=== PATIENT | female | born 1985 | race African-American/Black ===

== ENCOUNTER 2016-07-04 23:09 | Emergency (ER) ==
--- NOTE | 2016-07-05 00:52 | PROVIDER DOCUMENTATION ---
HPI-Abdominal Pain/GI Problem - General Chief Complaint: Abdominal Pain Stated Complaint: ABD PAIN,HEADACHE Time Seen by Provider: 07/05/16 00:33 Source: patient Allergies/Adverse Reactions: Patient Allergies Allergy/AdvReac Type Severity Reaction Status Date / Time No Known Allergies Allergy Verified 07/02/16 16:02 - History of Present Illness-ABD Nature of Presenting Problems: 31 y/o BF c/o constipation, FELTON, abd. pain, back pain x 3 days. Pt states constipated since 27 June 2016. Reports taking tylenol for fever, without relief. States low back pain. Denies any other sxs. Review of Systems - Adult - REVIEW OF SYSTEMS - ADULT Constitutional: reports: no symptoms reported. denies: chills, fever Eyes: reports: no symptoms reported. denies: blurred vision, double vision Ears, Nose, Mouth & Throat: reports: no symptoms reported. denies: ear pain, nose pain Cardiovascular: reports: no symptoms reported. denies: chest pain, palpitations Respiratory: reports: no symptoms reported. denies: dyspnea on exertion, shortness of breath Gastrointestinal: reports: see HPI, abdominal pain, constipation. denies: diarrhea, nausea, vomiting Genitourinary: reports: no symptoms reported. denies: dysuria, frequency Musculoskeletal: reports: no symptoms reported. denies: joint pain, joint swelling Integumentary: reports: no symptoms reported. denies: nail changes, rash Neurological: reports: see HPI, headache/migraines. denies: numbness, paresthesia Psychiatric: reports: no symptoms reported Endocrine: reports: no symptoms reported. denies: cold intolerance, heat intolerance Hematologic/Lymphatic: reports: no symptoms reported. denies: easy bruising, prolonged bleeding Allergic/Immunologic: reports: no symptoms reported All Other Systems: Reviewed and Negative Past History - Adult - PAST MEDICAL HISTORY-ADULT Review of Records: reports: Nursing Assessment Review, Medications Reviewed Major Childhood Illnesses: reports: denies history Cardiovascular: reports: HTN Respiratory: reports: denies history Gastrointestinal: reports: GERD, ulcer Obstetrical/Gynecological: reports: denies history Genitourinary: reports: denies history Musculoskeletal: reports: chronic pain, neck/back injury Neurological: reports: headaches/migraines Psychiatric: reports: anxiety Endocrine/Immune: reports: denies history Other Conditions: reports: denies history - PRIOR SURGERIES/PROCEDURES Surgical/Procedure History: reports: cholecystectomy, other (gallbader) - PRIOR HOSPITALIZATIONS Prior Hospitalizations: reports: none - IMMUNIZATION STATUS Childhood Immunizations: See Nurse Assessment Flu Vaccine: See Nurse Assessment - FAMILY HISTORY Family History: reviewed, not pertinent Physical Exam-General - PHYSICAL EXAM-ADULT Initial Vital Signs Reviewed: Yes - CONSTITUTIONAL General Appearance: alert, mild distress - EYES Eyes: PERRL/EOMI, pink conjunctivae - HEAD, EARS, NOSE, MOUTH & THROAT HENMT: normocephalic/atraumatic, moist mucous membranes, pharynx normal - NECK Neck: supple, normal inspection - RESPIRATORY Respiratory: lungs clear, normal breath sounds. negative: crackles, rales, rhonchi, stridor, wheezing - CARDIOVASCULAR Cardiovascular: regular rate, rhythm. negative: bradycardia, tachycardia - GASTROINTESTINAL (ABDOMEN) Abdominal Exam: normal bowel sounds, non tender, soft. negative: distended, guarding, rigid, rebound - MUSCULOSKELETAL Back Exam: no CVA tenderness Extremity: normal gait - SKIN Integumentary: normal color, normal turgor, warm/dry - NEUROLOGIC Neurologic: negative: aphasia - PSYCHIATRIC Psych/Mental Status: normal mood/affect, normal thought content, normal thought process, oriented x 3 Progress - PLAN OF CARE/RESULTS Progress/Plan/Lab Results: Laboratory Tests 07/05/16 07/05/16 07/05/16 00:45 01:10 01:10 WBC 7.22 RBC 4.23 Hgb 12.8 Hct 36.9 L MCV 87.2 MCH 30.3 MCHC 34.7 RDW Std Deviation 12.9 Plt Count 199 MPV 11.8 H Immature Gran % (Auto) 0.1 Neut % (Auto) 55.6 Lymph % (Auto) 29.8 [place] % (Auto) 12.6 H Eos % (Auto) 1.5 Baso % (Auto) 0.4 Immature Gran # (Auto) 0.01 Neut # (Auto) 4.01 Lymph # (Auto) 2.15 [place] # (Auto) 0.91 H Eos # (Auto) 0.11 Baso # (Auto) 0.03 Sodium 130 L Potassium 4.2 Chloride 98 Carbon Dioxide 24 L Anion Gap 8 BUN 10 Creatinine 0.4 L Estimated GFR/1.73 m2 > 60 BUN/Creatinine Ratio 25 Glucose 91 Calculated Osmolality 259 Calcium 9.3 Total Bilirubin < 0.15 L AST 12 ALT 8 L Alkaline Phosphatase 55 Total Protein 7.1 Albumin 3.8 Globulin 3.0 Albumin/Globulin Ratio 1.0 Amylase 136 Lipase 27 Urine Source CLEAN CATCH Urine Color YELLOW Urine Clarity CLEAR Urine pH 7.0 Ur Specific [place] 1.005 Urine Protein NEGATIVE Urine Ketones NEGATIVE Urine Blood NEGATIVE Urine Nitrite NEGATIVE Urine Bilirubin NEGATIVE Urine Urobilinogen NORMAL Urine Microscopic RBC Not Reportable Urine WBC NEGATIVE Urine Microscopic WBC <10 Ur Epithelial Cells <10 Urine Bacteria 1+ Urine Glucose NEGATIVE Orders Category Date Time Status NPO Diet 07/05/16 00:45 Completed AMYLASE [CHEM] Stat Lab 07/05/16 01:10 Completed CBC WITH ELECTRONIC DIFF [HEME] Stat Lab 07/05/16 01:10 Completed COMPREHENSIVE METABOLIC PANEL [CHEM] Stat Lab 07/05/16 01:10 Completed LIPASE [CHEM] Stat Lab 07/05/16 01:[address] W/POSS RFLX CULT [URINALYSIS] Stat Lab 07/05/16 00:45 Completed Acetaminophen [Tylenol] Med 07/05/16 02:13 Discontinued 1,000 mg PO NOW ONE Vital Signs Temp Pulse Resp BP Pulse Ox 07/05/16 02:29 82 18 105/69 98 07/04/16 23:28 98.5 F 92 H 18 113/77 100 No Known Allergies Allergy (Verified 07/02/16 16:02) Docusate Sodium [Colace] 100 mg PO BID PRN PRN #20 capsule 07/05/16 Polyethylene Glycol 3350 [Miralax] 17 gm PO DAILY #30 powd.pack 07/05/16 Laboratory 07/05/16 07/05/16 07/05/16 01:10 01:10 00:45 WBC 7.22 RBC 4.23 Hgb 12.8 Hct 36.9 L MCV 87.2 MCH 30.3 MCHC 34.7 RDW Std Deviation 12.9 Plt Count 199 MPV 11.8 H Immature Gran % (Auto) 0.1 Neut % (Auto) 55.6 Lymph % (Auto) 29.8 [place] % (Auto) 12.6 H Eos % (Auto) 1.5 Baso % (Auto) 0.4 Immature Gran # (Auto) 0.01 Neut # (Auto) 4.01 Lymph # (Auto) 2.15 [place] # (Auto) 0.91 H Eos # (Auto) 0.11 Baso # (Auto) 0.03 Sodium 130 L Potassium 4.2 Chloride 98 Carbon Dioxide 24 L Anion Gap 8 BUN 10 Creatinine 0.4 L Estimated GFR/1.73 m2 > 60 BUN/Creatinine Ratio 25 Glucose 91 Calculated Osmolality 259 Calcium 9.3 Total Bilirubin < 0.15 L AST 12 ALT 8 L Alkaline Phosphatase 55 Total Protein 7.1 Albumin 3.8 Globulin 3.0 Albumin/Globulin Ratio 1.0 Amylase 136 Lipase 27 Urine Source CLEAN CATCH Urine Color YELLOW Urine Clarity CLEAR Urine pH 7.0 Ur Specific [place] 1.005 Urine Protein NEGATIVE Urine Ketones NEGATIVE Urine Blood NEGATIVE Urine Nitrite NEGATIVE Urine Bilirubin NEGATIVE Urine Urobilinogen NORMAL Urine Microscopic RBC Not Reportable Urine WBC NEGATIVE Urine Microscopic WBC <10 Ur Epithelial Cells <10 Urine Bacteria 1+ Urine Glucose NEGATIVE Discussed results and f/u with pt. Departure - Departure Time of Disposition Order: 02:13 DIAGNOSIS: Constipation Qualifiers: Constipation type: unspecified constipation type Qualified Code(s): K59.00 - Constipation, unspecified Headache Qualifiers: Headache type: other vascular headache Qualified Code(s): G44.1 - Vascular headache, not elsewhere classified Disposition: HOME 01 Certified Medical Emergency: Emergent Condition: Stable Additional Instructions: Drink plenty of fluids. Follow up with OB for recheck in 3-5 days. ED Follow Up Instructions: You have been treated by a care provider in the Emergency Department. These instructions are being provided to you so you can have an understanding of how to care for yourself upon discharge. Upon discharge from the Emergency Department, you are responsible for making arrangements for follow-up care by a physician of your choice. Take all prescribed medications as directed. Return to the Emergency Department immediately for any new or worsening symptoms. You may call the Physician Referral phone number at [phone] to obtain a list of Physicians who are taking new patients. Prescriptions: Docusate Sodium [Colace] 100 mg PO BID PRN PRN #20 capsule PRN Reason: Constipation Polyethylene Glycol 3350 [Miralax] 17 gm PO DAILY #30 powd.pack Referrals: None,PCP [Primary Care Provider] - Alessio Sosa MD [STAFF PHYSICIAN] - Forms: Return to School/Parent Work Instructions: Docusate Sodium; Senna tablets, Migraine Headache, [id number], Polyethylene Glycol powder Attestation - Physician/ Mid-level Attestation Patient care was provided by Mid-level provider (HAY FARMER/PA):: Yes Mid-level provider:: Marjorie Garcia Mid-level documentation review:: The Mid-level provider documentation, treatment plan and medical decision making was reviewed by the physician who agrees with all treatment and medical decision making by the MLP.
[2016-07-05 01:15] LABS: MANUAL DIFF NEEDED? NO
[2016-07-05 01:23] LABS: BASO% 0.4 % (0.0-0.8); EOS# 0.11 X1000 (0.0-0.7); EOS% 1.5 % (0.0-10.0); HEMATOCRIT 36.9 % (37.0-47.0); HEMOGLOBIN 12.8 g/dL (12.0-16.0); IMM GRAN# 0.01 X1000 (0.0-0.04); IMM GRAN% 0.1 % (0.0-0.5); LYMPH# 2.15 X1000 (1.2-3.4); LYMPH% 29.8 % (20.5-51.1); MCH 30.3 PG (27-31); MCHC 34.7 g/dL (33-37); MCV 87.2 FL (81-99); MONO# 0.91 X1000 (0.11-0.59); MONO% 12.6 % (1.7-9.3); MPV 11.8 FL (7.4-10.4); NEUT% 55.6 % (42.2-75.2); PLT 199 X1000 (130-400); RBC 4.23 XMIL (4.2-5.4)
[2016-07-05 01:49] LABS: URINE CULTURE PL NEEDED? NO; URINE SOURCE CLEAN CATCH
[2016-07-05 02:08] LABS: BILIRUBIN URINE NEGATIVE (NEGATIVE); BLOOD URINE NEGATIVE (NEGATIVE); CLARITY CLEAR (CLEAR); COLOR YELLOW; GLUCOSE URINE NEGATIVE (NEGATIVE); LEUKOCYTES URINE NEGATIVE (NEGATIVE); NITRITE URINE NEGATIVE (NEGATIVE); PROTEIN URINE NEGATIVE (NEGATIVE); SP GRAVITY URINE 1.005; UROBILINOGEN URINE NORMAL
[2016-07-05] MEDS ORDERED: TYLENOL PO ONE (02:13)
[2016-07-05 02:21] LABS: URINE WBC <10 /HPF (<10)
[2016-07-05 02:22] LABS: URINE EPITHELIAL CELLS <10 /HPF (<10)
[2016-07-05 02:33] VITALS: BP 105/69
[2016-07-05 02:50] LABS: AGAP 8; ALBUMIN 3.8 g/dL (3.5-5.0); ALKALINE PHOSPHATASE 55 U/L (32-104); AMYLASE 136 U/L (20-200); BUN 10 mg/dL (8-22); CALCIUM 9.3 mg/dL (8.8-10.2); CHLORIDE 98 mmol/L (98-107); COSMO 259; GOT 12 U/L (10-30); GPT 8 U/L (10-36); LIPASE 27 U/L (13-60); SODIUM 130 mmol/L (136-145); TCO2 24 mmol/L (25-35); TOTAL BILIRUBIN < 0.15 mg/dL (0.20-1.00); TOTAL PROTEIN 7.1 g/dL (6.3-8.3)
[2016-07-05 03:22] LABS: POTASSIUM 4.2 mmol/L (3.5-5.1)
== END 2016-07-05 02:38 | disposition home or self-care (01) ==
LOC: P.ED 23:09
DX: K59.00 Constipation, unspecified (principal); G44.1 Vascular headache, not elsewhere classified; R10.9 Unspecified abdominal pain; M54.9 Dorsalgia, unspecified; I10 Essential (primary) hypertension; G89.29 Other chronic pain; R51 Headache
CPT/HCPCS: 36415; 80053; 81001; 82150; 83690; 85025; 99283

== ENCOUNTER 2016-09-10 14:38 | Emergency (ER) ==
[2016-09-10 16:32] VITALS: BP 104/066
--- NOTE | 2016-09-10 18:14 | PROVIDER DOCUMENTATION ---
HPI-General Adult - General Chief Complaint: Cold Symptoms Stated Complaint: 18+5DAYS WEEKS PREG (CONGESTED) Time Seen by Provider: 09/10/16 18:10 Source: patient Allergies/Adverse Reactions: Patient Allergies Allergy/AdvReac Type Severity Reaction Status Date / Time No Known Allergies Allergy Verified 09/10/16 15:01 Home Medications: Home Medication List Medication Instructions Recorded Confirmed Last Taken Type Azithromycin [Zithromax Z-Jason] 250 mg PO DIRECTED #1 pkg 09/10/16 Unknown Rx Pnv Cmb#95/Ferrous Fumarate/FA 1 mg PO DAILY 09/10/16 09/10/16 Unknown History [ Tablet] - History of Present Illness -Gen Adult Nature of Presenting Problems: 31 yof cold symptoms for a week, BP up and down, Neck pain. Headache with tylenol and no relief. Pt hasn't felt baby move in past 3 days. Location of Pain/Injury: reports: head, face Pain Radiation: reports: no radiation Quality of Pain: reports: aching Onset/Duration: reports: 3 days ago Timing: reports: still present, getting worse Context/Activities at Onset: reports: none Modifying Factors: improves with: nothing Associated Symptoms: reports: dizziness, sinus congestion/drainage Similar Symptoms Previously?: No Recently seen or treated by another doctor?: No Review of Systems - Adult - REVIEW OF SYSTEMS - ADULT Constitutional: reports: see HPI, chills. denies: no symptoms reported, fever, fatique, night sweats, weight gain, weight loss, other Eyes: reports: no symptoms reported. denies: see HPI, discharge, dry eyes, decreased vision, blurred vision, double vision, eye pain, redness, other Ears, Nose, Mouth & Throat: reports: see HPI, sinus problem. denies: no symptoms reported, ear discharge, ear pain, hearing loss, tinnitus, epistaxis, nose pain, loose teeth, mouth/dental pain, mouth swelling, hoarseness, throat pain, throat swelling, other Cardiovascular: reports: no symptoms reported. denies: see HPI, chest pain, edema, heart murmur, irregular heart rate, orthopnea, palpitations, poor circulation, PND, syncope, other Respiratory: reports: no symptoms reported. denies: see HPI, chronic cough, cough, dyspnea on exertion, excessive sputum production, hemoptysis, pleurisy, shortness of breath, wheezing, other Gastrointestinal: reports: no symptoms reported. denies: see HPI, abdominal pain, hematemesis, constipation, diarrhea, difficulty swallowing, frequent heartburn, nausea, poor appetite, rectal bleeding, vomiting, other Genitourinary: reports: no symptoms reported. denies: see HPI, dysuria, discharge, frequency, flank pain, frequent UTI's, hematuria, hesitency, incontinence, urinary retention, urgency, other Musculoskeletal: reports: no symptoms reported. denies: see HPI, bone pain, back pain, frequent leg cramps, joint pain, joint swelling, muscle aches, muscle weakness, neck pain, other Integumentary: reports: no symptoms reported. denies: see HPI, hives, hair loss , itching, mole changes, nail changes, rash, skin sores/ulcer, skin thickening, other Neurological: reports: no symptoms reported. denies: see HPI, ataxia, dizziness /vertigo, headache/migraines, loss of balance, numbness, paresthesia, seizure, slurred speech, syncope, tremors, other All Other Systems: Reviewed and Negative Past History - Adult - PAST MEDICAL HISTORY-ADULT Review of Records: reports: Old Records Reviewed, Nursing Assessment Review, Medications Reviewed, Social history reviewed & non-contributory. Major Childhood Illnesses: reports: denies history Cardiovascular: reports: HTN Respiratory: reports: denies history Gastrointestinal: reports: GERD, ulcer Obstetrical/Gynecological: reports: denies history Genitourinary: reports: denies history Musculoskeletal: reports: chronic pain, neck/back injury Neurological: reports: headaches/migraines Psychiatric: reports: anxiety Endocrine/Immune: reports: denies history Other Conditions: reports: denies history - PRIOR SURGERIES/PROCEDURES Surgical/Procedure History: reports: cholecystectomy, other (gallbader) - PRIOR HOSPITALIZATIONS Prior Hospitalizations: reports: none - IMMUNIZATION STATUS Childhood Immunizations: See Nurse Assessment Flu Vaccine: See Nurse Assessment - FAMILY HISTORY Family History: reviewed, not pertinent Physical Exam-General - PHYSICAL EXAM-ADULT Initial Vital Signs Reviewed: Yes - CONSTITUTIONAL General Appearance: appears well, alert, no apparent distress. negative: mild distress, moderate distress, severe distress, cachetic, obese, thin, anxious, lethargic, slow to respond, obtunded, combative, other - EYES Eyes: PERRL/EOMI, pink conjunctivae. negative: fundi clear, no AV nicking, anisocoria, conjuctival exudate, EOM palsy, meningismus, pale conjunctivae, photophobia, sclera injected, scleral icterus, subconjunctival hemorrhage, sunken eyes, other - HEAD, EARS, NOSE, MOUTH & THROAT HENMT: normocephalic/atraumatic, moist mucous membranes, normal ENT inspection, TMs normal, pharynx normal, frontal tenderness. negative: angioedema, dental decay, hearing deficit, pharyngeal erythema, tonsillar exudate, TM abnormal, TM obscurred by cerumen, maxillary tenderness, other - NECK Neck: non-tender, full range of motion, supple, normal inspection. negative: Brudzinski's sign, carotid bruit, C-spine tenderness, limited range of motion, lymphadenopathy, meningismus, trachial deviation, tender lateral, tender midline , thyromegaly, other - RESPIRATORY Respiratory: chest non-tender, lungs clear, normal breath sounds, no pleuratic chest pain, no respiratory distress, no accessory muscle use. negative: respiratory distress, decreased breath sounds, accessory muscle use, crackles, rales, rhonchi, stridor, wheezing, dull on percussion, prolonged expiration, pain on inspiration, plerual rub, retractions, splinting, decreased rate, increased rate, crepitus, other - CARDIOVASCULAR Cardiovascular: normal peripheral pulses, regular rate, rhythm, no edema, no gallop, no JVD, no murmur. negative: JVD, bradycardia, tachycardia, diastolic murmur, systolic murmur, gallop/S3, gallop/S4, extra beats, friction rub, irregularly irregular, PMI displaced laterally, other - CHEST (BREASTS) Chest/Breast: deferred. negative: normal breast inspection, no masses/lumps, no tenderness, nipple discharge, tenderness, mass/lump noted, other - GASTROINTESTINAL (ABDOMEN) Abdominal Exam: normal bowel sounds, non tender, soft, no organomegaly, no pulsatile mass. negative: abdominal bruit, abnormal bowel sounds, distended, guarding, rigid, rebound, tenderness, hernia, mass, hepatomegaly, spleenomegaly , McBurney's point tenderness, Pineda's sign, obturator sign, prominent aortic pulsations, psoas, Rovsing's sign, other - GENITOURINARY Female Genitalia/Pelvic Exam: deferred. negative: external exam normal, speculum exam normal, bimanual exam normal, no cerv. motion tender, no masses, active bleeding, blood, cervicitis, discharge, herpes-like ulcerations, lesions , mass, tender w/ cervical motion, tender adnexa, tender uterus, ulcers, other Rectal Exam: deferred Hemoccult Exam: deferred - LYMPHATIC Lymphatic: no adenopathy. negative: axilla node tender, cervical node tenderness, inguinal node tender, enlargement, striations, streaking, other - MUSCULOSKELETAL Back Exam: normal inspection, no CVA tenderness, no vertebral tenderness. negative: CVA tenderness, decreased range of motion, ecchymosis, kyphosis, lordosis, muscle spasm, scoliosis, swelling, vertebral tenderness, other Extremity: normal range of motion, non-tender, normal gait, normal inspection, no pedal edema, no calf tenderness, normal capillary refill. negative: pelvis stable, abnormal NV exam, calf tenderness, deformity, erythema, inflammation, joint effusion, pulse deficit, pedal edema, slow capillary refill, swelling, tenderness, other - SKIN Integumentary: normal color, normal turgor, warm/dry - NEUROLOGIC Neurologic: grossly normal - PSYCHIATRIC Psych/Mental Status: oriented x 3 Progress - PLAN OF CARE/RESULTS Progress/Plan/Lab Results: Laboratory Tests 09/10/16 09/10/16 15:02 15:02 Influenza A (Rapid) NEGATIVE Influenza B (Rapid) NEGATIVE Group A Strep Rapid NEGATIVE Orders Category Date Time Status Heart Tones NOW Care 09/10/16 18:[address] Stat Lab 09/10/16 15:02 Completed Flu [INFLUENZA SCREEN PL] Stat Lab 09/10/16 15:02 Completed Vital Signs Temp Pulse Resp BP Pulse Ox 09/10/16 16:29 98.8 F 82 17 104/066 100 09/10/16 14:58 98.3 F 88 16 112/65 100 No Known Allergies Allergy (Verified 09/10/16 15:01) Azithromycin [Zithromax Z-Jason] 250 mg PO DIRECTED #1 pkg 09/10/16 Pnv Cmb#95/Ferrous Fumarate/FA [ Tablet] 1 mg PO DAILY 09/10/16 Laboratory 09/10/16 09/10/16 15:02 15:02 Influenza A (Rapid) NEGATIVE Influenza B (Rapid) NEGATIVE Group A Strep Rapid NEGATIVE Departure - Departure Time of Disposition Order: 18:15 DIAGNOSIS: Sinusitis Qualifiers: Sinusitis location: frontal Chronicity: acute Recurrence: not specified as recurrent Qualified Code(s): J01.10 - Acute frontal sinusitis, unspecified DIAGNOSIS: (Ruled Out): Sinusitis chronic, frontal Disposition: HOME 01 Certified Medical Emergency: Emergent Condition: Stable Additional Instructions: ED Follow Up Instructions: You have been treated by a care provider in the Emergency Department. These instructions are being provided to you so you can have an understanding of how to care for yourself upon discharge. Upon discharge from the Emergency Department, you are responsible for making arrangements for follow-up care by a physician of your choice. Take all prescribed medications as directed. Return to the Emergency Department immediately for any new or worsening symptoms. You may call the Physician Referral phone number at [phone] to obtain a list of Physicians who are taking new patients. Prescriptions: Azithromycin [Zithromax Z-Jason] 250 mg PO DIRECTED #1 pkg Referrals: Justine Laurent MD [STAFF PHYSICIAN] - None,PCP [Primary Care Provider] - Forms: Return to School/Parent Work Instructions: Sinusitis, [id number] Attestation - Physician/ NIDIA Attestation Patient care was provided by Advanced Practice Provider:: Yes Advanced Practice Provider:: Faustino Hyde Advanced Practice Provider documentation review:: The Mid-level provider documentation, treatment plan and medical decision making was reviewed by the physician who agrees with all treatment and medical decision making by the [facility]. Physician Attestation - Physician Attestation I, the provider, attest to the following statement:: Faustino Hyde Physician documentation Attestation:: This documentation recorded by the scribe accurately reflects the service I personally performed and the decisions made by me.
== END 2016-09-10 18:36 | disposition home or self-care (01) ==
LOC: P.ED 14:38
DX: O26.892 Other specified pregnancy related conditions, second trimester (principal); J01.10 Acute frontal sinusitis, unspecified; R51 Headache; M54.2 Cervicalgia; R42 Dizziness and giddiness; R09.81 Nasal congestion; R68.83 Chills (without fever); G89.29 Other chronic pain; Z3A.18 18 weeks gestation of pregnancy
CPT/HCPCS: 87081; 87430; 87804; 99283

== ENCOUNTER 2016-12-25 00:21 | Inpatient (IN) ==
[2016-12-25] MEDS ORDERED: MORPHINE IV ONE (01:26)
[2016-12-25] MEDS ORDERED: SODIUM CHLORIDE 0.9% INJ ONE ×2 (01:26→03:15)
[2016-12-25] MEDS ORDERED: PHENERGAN IV ONE (01:26)
[2016-12-25] MEDS ORDERED: NS 1,000 ML IV ONE ×2 (01:26→03:13)
[2016-12-25] MEDS ORDERED: ZOFRAN IV ONE (02:28)
--- NOTE | 2016-12-25 03:13 | PROVIDER DOCUMENTATION ---
This chart was entered by Rosario Johansen Scribe, acting as scribe for Jamie Wahl MD. HPI-Abdominal Pain/GI Problem - General Chief Complaint: N/V/D Stated Complaint: V/N/D Time Seen by Provider: 12/25/16 00:50 Source: patient Allergies/Adverse Reactions: Patient Allergies Allergy/AdvReac Type Severity Reaction Status Date / Time No Known Allergies Allergy Verified 12/23/16 19:38 Home Medications: Home Medication List Medication Instructions Recorded Confirmed Last Taken Type Pnv Cmb#95/Ferrous Fumarate/FA 1 mg PO DAILY 09/10/16 12/25/16 12/22/16 History [ Tablet] Metronidazole [Metronidazole] 500 mg PO TID 12/25/16 12/25/16 Unknown History Ondansetron HCl 4 mg PO PRN PRN 12/25/16 12/25/16 Unknown History - History of Present Illness-ABD Nature of Presenting Problems: Pt is a 31 year old female who came to the ED with a cc of N/V/D and being . pt reports she was recently diagnosed with cdiff and has been on antibiotics which has not helped. Pain Radiation: reports: no radiation Quality of Pain: reports: cramping Severity in ED: reports: mild Onset/Duration: reports: 5 days ago Timing: reports: still present Associated Symptoms: reports: diarrhea, nausea, vomiting. denies: headaches, heartburn Last BM: unsure Dark Stools Present?: reports: none noticed Rectal Bleeding: reports: none Rectal Pain: reports: none Bruising or Bleeding Gums?: No Similar Symptoms Previously?: Yes Recently seen or treated by another doctor?: Yes Review of Systems - Adult - REVIEW OF SYSTEMS - ADULT Constitutional: denies: chills, fever Eyes: reports: no symptoms reported Ears, Nose, Mouth & Throat: denies: loose teeth, throat swelling Cardiovascular: reports: no symptoms reported Respiratory: reports: no symptoms reported Gastrointestinal: reports: abdominal pain, diarrhea, nausea, vomiting. denies: hematemesis, difficulty swallowing, frequent heartburn Genitourinary: reports: no symptoms reported Musculoskeletal: denies: frequent leg cramps, joint swelling Integumentary: reports: no symptoms reported Neurological: reports: no symptoms reported Psychiatric: reports: no symptoms reported Endocrine: reports: no symptoms reported Hematologic/Lymphatic: reports: no symptoms reported Allergic/Immunologic: reports: no symptoms reported All Other Systems: Reviewed and Negative Past History - Adult - PAST MEDICAL HISTORY-ADULT Review of Records: reports: Nursing Assessment Review Major Childhood Illnesses: reports: denies history Cardiovascular: reports: HTN Respiratory: reports: denies history Gastrointestinal: reports: GERD, ulcer Obstetrical/Gynecological: reports: denies history Genitourinary: reports: denies history Musculoskeletal: reports: chronic pain, neck/back injury Neurological: reports: headaches/migraines Psychiatric: reports: anxiety Endocrine/Immune: reports: denies history Other Conditions: reports: denies history - PRIOR SURGERIES/PROCEDURES Surgical/Procedure History: reports: cholecystectomy, other (gallbader) - PRIOR HOSPITALIZATIONS Prior Hospitalizations: reports: none - IMMUNIZATION STATUS Childhood Immunizations: See Nurse Assessment Flu Vaccine: See Nurse Assessment - FAMILY HISTORY Family History: reviewed, not pertinent Physical Exam-General - PHYSICAL EXAM-ADULT Initial Vital Signs Reviewed: Yes - CONSTITUTIONAL General Appearance: alert, mild distress - EYES Eyes: PERRL/EOMI, pink conjunctivae - HEAD, EARS, NOSE, MOUTH & THROAT HENMT: normocephalic/atraumatic, moist mucous membranes - NECK Neck: non-tender, full range of motion - RESPIRATORY Respiratory: chest non-tender, lungs clear - CARDIOVASCULAR Cardiovascular: normal peripheral pulses, regular rate, rhythm - GASTROINTESTINAL (ABDOMEN) Abdominal Exam: normal bowel sounds, soft - MUSCULOSKELETAL Back Exam: CVA tenderness Extremity: normal range of motion, non-tender - SKIN Integumentary: normal color, normal turgor - NEUROLOGIC Neurologic: grossly normal - PSYCHIATRIC Psych/Mental Status: normal mood/affect, normal thought content, normal thought process, oriented x 3 Progress - PLAN OF CARE/RESULTS Progress/Plan/Lab Results: Vital Signs - 8 hr 12/25/16 00:32 Temperature 98.2 F Pulse Rate 110 H Respiratory Rate 18 Blood Pressure 117/73 O2 Sat by Pulse Oximetry 100 - REASSESSMENT Reassessment #1 Time Reassessed: 03:11 (pt still unable to keep water down despite phenergan 25mg and zofran 8 mg ) Status: unchanged - CONSULTS/PCP/HOSPITALIST Notification #1 *Consult/PCP/Hospitalist*: Dr Suggs Time Discussed: 03:12 Consult Disposition: Admit Departure - Departure Date of Disposition Decision: 12/25/16 Time of Disposition Decision: 03:12 DIAGNOSIS: 33 weeks gestation of Vomiting Qualifiers: Vomiting type: unspecified Vomiting Intractability: intractable Nausea presence : with nausea Qualified Code(s): R11.2 - Nausea with vomiting, unspecified Disposition: ADMITTED INPATIENT 09 Certified Medical Emergency: Emergent Condition: Good Referrals and Follow-Ups: Lobito Suggs MD [Primary Care Provider] - - Critical Care Note This patient required my direct & personal management of CC.: No This chart was documented by the indicated scribe, (Rosario Johansen Scribe) and accurately reflects the services I performed and decisions made by me, Jamie Miramontes MD, as attested by the provider's signature.
[2016-12-25] MEDS ORDERED: ZOFRAN IV PRN (03:14)
[2016-12-25 03:15] LABS: MANUAL DIFF NEEDED? NO
[2016-12-25] MEDS ORDERED: NS 1,000 ML ONE (03:15)
[2016-12-25] MEDS ORDERED: PHENERGAN IV PRN (03:15)
[2016-12-25 03:32] LABS: BASO% 0.3 % (0.0-0.8); EOS# 0.08 X1000 (0.0-0.7); EOS% 1.1 % (0.0-10.0); HEMATOCRIT 33.6 % (37.0-47.0); HEMOGLOBIN 11.4 g/dL (12.0-16.0); IMM GRAN# 0.14 X1000 (0.0-0.04); LYMPH# 0.96 X1000 (1.2-3.4); LYMPH% 13.4 % (20.5-51.1); MCH 30.2 PG (27-31); MCHC 33.9 g/dL (33-37); MCV 89.1 FL (81-99); MONO# 1.06 X1000 (0.11-0.59); MONO% 14.8 % (1.7-9.3); MPV 12.5 FL (7.4-10.4); NEUT% 68.4 % (42.2-75.2); PLT 145 X1000 (130-400); RBC 3.77 XMIL (4.2-5.4)
[2016-12-25 03:41] LABS: AGAP 16; ALBUMIN 3.5 g/dL (3.5-5.0); ALKALINE PHOSPHATASE 68 U/L (32-104); BUN 6 mg/dL (8-22); CALCIUM 8.6 mg/dL (8.8-10.2); CHLORIDE 97 mmol/L (98-107); COSMO 261; GOT 28 U/L (10-30); GPT 14 U/L (10-36); POTASSIUM 3.5 mmol/L (3.5-5.1); SODIUM 132 mmol/L (136-145); TCO2 19 mmol/L (25-35); TOTAL PROTEIN 5.9 g/dL (6.3-8.3)
[2016-12-25] MEDS: D5 LR 1,000 ML IV SCH ×3 (04:57→21:22)
[2016-12-25] MEDS: NS 1,000 ML IV ONE ×2 (04:59→05:30)
[2016-12-25 05:46] LABS: BILIRUBIN URINE NEGATIVE (NEGATIVE); BLOOD URINE NEGATIVE (NEGATIVE); CLARITY CLEAR (CLEAR); COLOR YELLOW; GLUCOSE URINE NEGATIVE (NEGATIVE); LEUKOCYTES URINE NEGATIVE (NEGATIVE); NITRITE URINE NEGATIVE (NEGATIVE); PROTEIN URINE NEGATIVE (NEGATIVE); SP GRAVITY URINE 1.005; UROBILINOGEN URINE NORMAL
[2016-12-25 05:58] LABS: URINE CULTURE PL NEEDED? YES; URINE EPITHELIAL CELLS <10 /HPF (<10); URINE RBC <10 /HPF (<10); URINE SOURCE CLEAN CATCH; URINE WBC <10 /HPF (<10)
[2016-12-25] MEDS ORDERED: NS 500 ML IV SCH (08:28)
[2016-12-25] MEDS: ROCEPHIN 1 GM/NS 1 GM/50 ML IVPB IV SCH (08:42)
[2016-12-25] MEDS: PERCOCET-5 PO PRN ×2 (08:43→14:56)
[2016-12-25] MEDS: VANCOCIN PO SCH ×2 (08:59→14:03)
[2016-12-25] MEDS: FLAGYL 250 MG/NS 250 MG/50 ML IVPB IV SCH ×2 (09:30→14:05)
[2016-12-25] MEDS: PHENERGAN IV PRN ×2 (10:18→17:20)
[2016-12-25] MEDS: SODIUM CHLORIDE 0.9% INJ PRN ×2 (10:18→17:20)
--- NOTE | 2016-12-25 14:35 | HISTORY AND PHYSICAL ---
HISTORY OF PRESENT ILLNESS: Rose a 31-year-old, female, 2, para 1-0-0- 1 whose estimated gestational age is 34 weeks. Presented to emergency room with severe nausea, vomiting and diarrhea. The patient reports this has been ongoing for the last few weeks, but has progressively worsened over the last day in which she cannot tolerate any p.o. fluids or solids. The patient's son has been diagnosed with Clostridium difficile and is currently on medications for this condition. The patient also reports dysuria and low back pain, although she does have chronic back pain and has taken narcotics for this condition in the past. PAST MEDICAL HISTORY: History of chronic back pain as noted above. PAST SURGICAL HISTORY: Cholecystectomy and x1. ALLERGIES: No known drug allergies. MEDICATIONS: vitamins. SOCIAL HISTORY: The patient is a tobacco user and has used marijuana in the past. PHYSICAL EXAMINATION: GENERAL: Ill-appearing white female, in no apparent distress. VITAL SIGNS: Afebrile, vital signs stable. CARDIOVASCULAR: Regular rate and rhythm. LUNGS: Computed tomography angiography. ABDOMEN: Soft, nontender. Gravid. heart tones are positive. EXTREMITIES: No edema. LABORATORY WORK: Shows white count 7000. Liver panel shows AST, ALT and alkaline phosphatase all within normal limits. Urinalysis did have 4+ bacteria with 3+ ketones as clean catch. C. difficile has been ordered for stool culture. PLAN: We will admit the patient for IV hydration and symptomatic care. We will presumptively treat her for Clostridium difficile pending cultures given patient's history of profuse diarrhea. May have to consult Gastroenterology. The patient will be given IV Flagyl as well as being placed on p.o. vancomycin for Clostridium difficile protocol. I also gave the patient Rocephin given her dysuria and findings on the urinalysis. cc: MD Lobito Overton MD
[2016-12-26] MEDS: D5 LR 1,000 ML IV SCH (04:05)
[2016-12-26] MEDS: PERCOCET-5 PO PRN ×2 (04:37→10:09)
[2016-12-26] MEDS: ROCEPHIN 1 GM/NS 1 GM/50 ML IVPB IV SCH (09:21)
[2016-12-26 11:11] VITALS: BP 109/70
--- NOTE | 2016-12-26 19:30 | DISCHARGE SUMMARY ---
ADMISSION DATE: 12/25/2016 DISCHARGE DATE: 12/26/2016 ADMIT DIAGNOSES: 1. Intrauterine at 33 weeks. 2. Nausea, vomiting, dehydration. 3. Intrauterine at 33 weeks. 4. Nausea vomiting, resolved. CONDITION: Stable. DIET: As tolerated. ACTIVITY: Routine. ANTEPARTUM CARE: Do kick counts, keep scheduled followup appointments. MEDICATIONS: She is to continue her vitamins and her antiemetics and she states she has an appointment scheduled this week, she is to keep that. HOSPITAL COURSE: Please refer to her H and P dictation. Ms. Beck 31-year-old 2, para 1 who presented yesterday evening with persistent nausea, vomiting, was admitted for IV fluid hydrations, antiemetics, overnight she was continue fluids started feel better. She has been taking in liquids now and is very hungry wants to eat and ready to go home so will discharge to home. PHYSICAL EXAMINATION: Vital Signs: Stable. She is afebrile, General: Is alert, cooperative, no distress. Neck: Supple. Lungs: Clear. Heart: Regular sinus rhythm. Abdomen: Gravid, fundal height of 34. Pelvic: Deferred. Extremities: No cyanosis, clubbing, edema her extremities. DATA: Her C. difficile was negative. Will discharge with above instructions. cc: Lobito Suggs MD
== END 2016-12-26 14:45 | disposition home or self-care (01) ==
LOC: P.ED 00:21 → P.MEDSURG 00:21 → OBSVTOIN 03:31 → P.WC 03:44
PROVIDERS: ADMIT Obstetrics & Gynecology; ATTEND Obstetrics & Gynecology

== ENCOUNTER 2017-01-26 17:39 | Inpatient (IN) ==
[2017-01-26 18:13] LABS: URINE SOURCE VOIDED
[2017-01-26 18:27] LABS: BILIRUBIN URINE NEGATIVE (NEGATIVE); BLOOD URINE NEGATIVE (NEGATIVE); CLARITY SL. CLOUDY (CLEAR); COLOR YELLOW; GLUCOSE URINE NEGATIVE (NEGATIVE); LEUKOCYTES URINE 2+ (NEGATIVE); NITRITE URINE NEGATIVE (NEGATIVE); PROTEIN URINE NEGATIVE (NEGATIVE); SP GRAVITY URINE 1.005; UROBILINOGEN URINE NORMAL
[2017-01-26 19:30] LABS: UR AMPHETAMINES QUAL NONE DETECTED (NONE DETECT); UR BARBITUATES QUAL NONE DETECTED (NONE DETECT); UR BENZODIAZEPIN QUAL NONE DETECTED (NONE DETECT); UR CANNABINOIDS QUAL NONE DETECTED (NONE DETECT); UR COCAINE QUAL NONE DETECTED (NONE DETECT); UR MDMA QUAL NONE DETECTED (NONE DETECT); UR METHADONE QUAL NONE DETECTED (NONE DETECT); UR METHAMPHETAMINE QUAL NONE DETECTED (NONE DETECT); UR OPIATES QUAL NONE DETECTED (NONE DETECT); UR OXYCODONE QUAL NONE DETECTED (NONE DETECT); UR PCP QUAL NONE DETECTED (NONE DETECT); UR TCA QUAL NONE DETECTED (NONE DETECT)
[2017-01-26] MEDS ORDERED: ZOFRAN IV PRN (19:54)
[2017-01-26] MEDS ORDERED: REGLAN PO ONE (19:54)
[2017-01-26] MEDS ORDERED: PITOCIN 30 UNITS/LR 30 UNITS/500 ML IV.SOLN IV SCH (19:54)
[2017-01-26] MEDS ORDERED: KEFZOL 1 GM/D5W 1 GM/50 ML IVPB IV PRN (19:54)
[2017-01-26] MEDS ORDERED: PEPCID IV PRN (19:54)
[2017-01-26] MEDS ORDERED: LR 1,000 ML IV SCH (19:54)
[2017-01-26] MEDS ORDERED: PEPCID PO ONE (19:54)
[2017-01-26] MEDS ORDERED: TYLENOL PO PRN (19:54)
[2017-01-26] MEDS ORDERED: STADOL IV PRN (19:54)
[2017-01-26] MEDS ORDERED: XYLOCAINE-MPF 1% INJ ONE (19:58)
[2017-01-26] MEDS ORDERED: MINERAL OIL ONE (19:58)
[2017-01-26] MEDS ORDERED: SODIUM CHLORIDE 0.9% INJ SCH (20:00)
[2017-01-26 21:13] LABS: MANUAL DIFF NEEDED? NO
[2017-01-26 21:16] LABS: BASO% 0.2 % (0.0-0.8); EOS# 0.06 X1000 (0.0-0.7); EOS% 0.5 % (0.0-10.0); HEMATOCRIT 34.3 % (37.0-47.0); HEMOGLOBIN 11.8 g/dL (12.0-16.0); IMM GRAN# 0.18 X1000 (0.0-0.04); IMM GRAN% 1.4 % (0.0-0.5); LYMPH# 2.41 X1000 (1.2-3.4); LYMPH% 18.2 % (20.5-51.1); MCH 30.3 PG (27-31); MCHC 34.4 g/dL (33-37); MCV 88.2 FL (81-99); MONO# 1.44 X1000 (0.11-0.59); MONO% 10.9 % (1.7-9.3); MPV 12.5 FL (7.4-10.4); NEUT% 68.8 % (42.2-75.2); PLT 166 X1000 (130-400); RBC 3.89 XMIL (4.2-5.4)
[2017-01-26] MEDS ORDERED: SODIUM CHLORIDE 0.9% INJ PRN (22:45)
[2017-01-26] MEDS ORDERED: PHENERGAN IV PRN (22:45)
[2017-01-27] MEDS ORDERED: MINERAL OIL ONE (02:30)
[2017-01-27] MEDS ORDERED: XYLOCAINE-MPF 1% INJ ONE (02:30)
[2017-01-27] MEDS ORDERED: FENTANYL-BUPIV-NS 2 MCG-0.1% 200 ML EPIDURAL SCH (03:00)
[2017-01-27] MEDS ORDERED: PITOCIN 30 UNITS/LR 30 UNITS/500 ML IV.SOLN IV ONE (07:41)
[2017-01-27] MEDS ORDERED: HYDROXYZINE PO PRN (07:41)
[2017-01-27] MEDS ORDERED: AMBIEN PO PRN (07:41)
[2017-01-27] MEDS ORDERED: M-M-R II VACCINE SUBQ ONE (07:41)
[2017-01-27] MEDS ORDERED: PERCOCET-5 PO PRN (07:41)
[2017-01-27] MEDS ORDERED: BOOSTRIX VACCINE IM ONE (07:41)
[2017-01-27] MEDS ORDERED: XYLOCAINE-MPF 1% INJ PRN (07:41)
[2017-01-27] MEDS ORDERED: CYTOTEC PO PRN (07:41)
[2017-01-27] MEDS ORDERED: PERI MEDS (DERMOPLAST/NUPERCAINAL/TUCKS) MISC PRN (07:41)
[2017-01-27] MEDS ORDERED: BENADRYL PO PRN (07:41)
[2017-01-27] MEDS ORDERED: PITOCIN 20 UNITS/LR 20 UNITS/1,000 ML IV.SOLN IV SCH (07:41)
[2017-01-27] MEDS ORDERED: MINERAL OIL PO PRN (07:41)
[2017-01-27] MEDS ORDERED: BENADRYL IV PRN (07:41)
[2017-01-27] MEDS ORDERED: PITOCIN IM PRN (07:41)
[2017-01-27] MEDS ORDERED: HYDROXYZINE IM PRN (07:41)
[2017-01-27] MEDS: NORCO-10 PO PRN ×2 (14:54→19:17)
[2017-01-27] MEDS: MOTRIN PO PRN ×2 (14:54→22:38)
[2017-01-27] MEDS ORDERED: PEPCID PO ONE (15:51)
[2017-01-27] MEDS: PEPCID PO PRN (16:00)
[2017-01-27] MEDS: PERICOLACE PO SCH (20:54)
[2017-01-27] MEDS: NORCO-5 PO PRN (22:39)
[2017-01-28] MEDS: NORCO-5 PO PRN (03:28)
[2017-01-28 06:26] LABS: MANUAL DIFF NEEDED? NO
[2017-01-28 06:40] LABS: BASO% 0.1 % (0.0-0.8); EOS# 0.12 X1000 (0.0-0.7); EOS% 0.8 % (0.0-10.0); HEMOGLOBIN 10.8 g/dL (12.0-16.0); IMM GRAN# 0.16 X1000 (0.0-0.04); IMM GRAN% 1.1 % (0.0-0.5); LYMPH# 2.75 X1000 (1.2-3.4); LYMPH% 18.8 % (20.5-51.1); MCH 29.6 PG (27-31); MCHC 32.7 g/dL (33-37); MCV 90.4 FL (81-99); MONO# 1.59 X1000 (0.11-0.59); MONO% 10.9 % (1.7-9.3); MPV 12.4 FL (7.4-10.4); NEUT% 68.3 % (42.2-75.2); PLT 149 X1000 (130-400); RBC 3.65 XMIL (4.2-5.4)
[2017-01-28] MEDS: NORCO-10 PO PRN (09:22)
[2017-01-28] MEDS: MOTRIN PO PRN ×2 (09:22→18:47)
[2017-01-28] MEDS: PERCOCET-10 PO PRN ×4 (12:14→22:06)
[2017-01-28] MEDS: PERICOLACE PO SCH (22:06)
[2017-01-29] MEDS: PEPCID PO PRN (00:37)
[2017-01-29] MEDS: PERCOCET-10 PO PRN (01:15)
[2017-01-29] MEDS ORDERED: DEPO-PROVERA IM ONE ×2 (06:42→09:15)
[2017-01-29] MEDS: MOTRIN PO PRN (08:24)
[2017-01-29] MEDS: NORCO-10 PO PRN ×2 (08:25→12:24)
[2017-01-29 08:35] VITALS: BP 152/82
== END 2017-01-29 12:30 | disposition home or self-care (01) ==
LOC: P.OPLD 17:39 → P.LD 17:41
PROVIDERS: ADMIT Obstetrics & Gynecology; ATTEND Obstetrics & Gynecology